=== PATIENT | male | born 1995 | race Two or more races ===

== ENCOUNTER 2018-04-03 08:21 | Emergency (ER) | payer OTHER ==
[~2018-04-03] VITALS: Ht 167.6 cm; Wt 58.1 kg
[2018-04-03 08:30] VITALS: BP 132/69; Ht 167.6 cm; Wt 58.1 kg
[2018-04-03 08:49] LABS: BASOPHIL % 0.4 % (0-2); PLATELET COUNT 195 x10^3mcL (130-400); RED CELL DISTRIBUTION WIDTH 12.2 % (11.5-14.5)
[2018-04-03 08:57] LABS: CALCIUM 9.3 mg/dL (8.5-10.1); CARBON DIOXIDE 34.4 mmol/L (21-32); CHLORIDE SERUM 105 mmol/L (98-107); CREATININE SERUM 0.9 mg/dL (0.7-1.3); GFR1 > 60 mL/min; GLUCOSE SERUM 107 mg/dL (74-106); POTASSIUM SERUM 4.6 mmol/L (3.5-5.1); SODIUM SERUM 146 mmol/L (136-145)
[2018-04-03 09:01] LABS: ALKALINE PHOSPHATASE 69 U/L (46-116); ALT/SGPT 28 U/L (16-63); AST/SGOT 16 U/L (15-37); BILIRUBIN TOTAL 0.57 mg/dL (0.20-1.00); LIPASE 77 IU/L (73-393)
[2018-04-03 09:07] LABS: TOTAL PROTEIN, SERUM 8.8 g/dL (6.4-8.2)
== END 2018-04-03 09:49 | disposition home or self-care (01) ==
LOC: ED 08:21
PROVIDERS: Emergency Medicine
DX: R10.9 Unspecified abdominal pain (principal); R51 Headache; R11.10 Vomiting, unspecified
CPT/HCPCS: J1885; J2550